=== PATIENT | female | born 1970 | race Caucasian/White ===

== ENCOUNTER → 2024-09-14 11:04 | Outpatient (REF) | payer OTHER, SELFPAY ==
[2024-09-14 13:14] LABS: Rubella Positive
[2024-09-14 13:35] LABS: Hepatitis B Surface Antibody Negative
[2024-09-16 06:30] LABS: Quantiferon Mitogen minus NIL 9.98 IU/mL; Quantiferon NIL 0.02 IU/mL; Quantiferon Plus TB1 minus NIL 0.03 IU/mL (<=0.34); Quantiferon Plus TB2 minus NIL 0.02 IU/mL (<=0.34); Quantiferon TB Gold Plus Negative (Negative)
[2024-09-16 11:15] LABS: Mumps Virus IgG Positive; Rubeola (Measles) IgG Positive; Varicella Zoster IgG (VZV) Positive
== END ==
LOC: REG 11:04
PROVIDERS: ATTENDING PHYSICIAN Nurse Practitioner Family
DX: Z23 Encounter for immunization (principal)
CPT/HCPCS: 36415; 86480; 86706; 86735; 86762; 86765; 86787

== ENCOUNTER → 2024-11-12 06:57 | Outpatient (REF) | payer OTHER, SELFPAY ==
[2024-11-12 10:30] LABS: Hepatitis B Surface Antibody Positive
== END ==
LOC: REG 06:57
PROVIDERS: ATTENDING PHYSICIAN Nurse Practitioner Family
DX: Z23 Encounter for immunization (principal)
CPT/HCPCS: 36415; 86706

== ENCOUNTER → 2025-05-17 08:09 | Outpatient (REF) | payer BC, SELFPAY ==
[2025-05-21 05:02] LABS: HPV, High Risk Not Detected; HPV, High Risk Source Cervical
== END ==
LOC: CPAP 08:09
PROVIDERS: ATTENDING PHYSICIAN Obstetrics & Gynecology Gynecology
DX: Z01.419 Encounter for gynecological examination (general) (routine) without abnormal findings (principal); N87.9 Dysplasia of cervix uteri, unspecified
CPT/HCPCS: 87624

== ENCOUNTER → 2025-05-18 06:32 | Outpatient (REF) | payer BC, SELFPAY ==
[2025-05-18 07:58] LABS: ALT (SGPT) 43 U/L (0-35); AST (SGOT) 29 U/L (14-36); Albumin 4.5 g/dl (3.5-5.0); Alkaline Phosphatase 83 U/L (38-126); Blood Urea Nitrogen 27 mg/dl (7-17); Calcium 9.3 mg/dl (8.4-10.2); Carbon Dioxide 28 mmol/L (22-30); Chloride 105 mmol/L (98-107); Glucose 158 mg/dl (70-99); HDL Cholesterol 45 mg/dl; LDL Cholesterol, Calculated 117 mg/dl; Potassium 4.6 mmol/L (3.5-5.1); Sodium 140 mmol/L (135-145); Total Protein 7.3 g/dl (6.3-8.2); Very Low Density Lipoprotein 40 mg/dl (0-30); eGFR > 60.00
[2025-05-18 08:22] LABS: Microalb - Urine Creatinine 132.600 mg/dl
[2025-05-18 08:28] LABS: Microalbumin, Random Urine 1.0 mg/dl (0.6-1.7)
[2025-05-18 09:40] LABS: Glycohemoglobin (HgbA1c) 6.5 % (4.0-5.6)
== END ==
LOC: REG 06:32
PROVIDERS: ATTENDING PHYSICIAN Nurse Practitioner Family; FAMILY PHYSICIAN Family Medicine
DX: E11.65 Type 2 diabetes mellitus with hyperglycemia (principal)
CPT/HCPCS: 36415; 80053; 80061; 82043; 82570; 83036

== ENCOUNTER → 2025-07-27 10:12 | Outpatient (REF) | payer OTHER, SELFPAY | LOC: RAD 10:12 | PROVIDERS: ATTENDING PHYSICIAN Nurse Practitioner Family | DX: M79.602 Pain in left arm (principal) | CPT/HCPCS: 73090 ==